=== PATIENT | female | born 1965 | race African-American/Black ===

== ENCOUNTER 2023-07-07 12:02 | Inpatient (IN) | payer OTHER ==
[2023-07-07 13:30] VITALS: BMI 18.6
[2023-07-07] MEDS ORDERED: MAGNESIUM HYDROX 2400MG/30ML ORAL SUSPENSION 30 ML CUP PO PRN (16:18)
[2023-07-07] MEDS ORDERED: BENZONATATE 200 MG CAPSULE PO PRN (16:18)
[2023-07-07] MEDS ORDERED: LOPERAMIDE HCL 2 MG CAPSULE PO PRN (16:18)
[2023-07-07] MEDS ORDERED: DICYCLOMINE HCL 10 MG CAPSULE PO PRN (16:18)
[2023-07-07] MEDS ORDERED: NALOXONE HCL (KLOXXADO) 8 MG SPRAY NS PRN (16:18)
[2023-07-07] MEDS ORDERED: NALOXONE HCL 0.4 MG/ML VIAL IM PRN (16:18)
[2023-07-07] MEDS ORDERED: IBUPROFEN 400 MG TABLET (FP) PO PRN (16:18)
[2023-07-07] MEDS ORDERED: METHOCARBAMOL 500 MG TABLET PO PRN (16:18)
[2023-07-07] MEDS ORDERED: BENZOCAINE/MENTHOL (CHLORASEPTIC ) LOZENGE MM PRN (16:18)
[2023-07-07] MEDS ORDERED: guaiFENesin 600 MG TABLET.ER (FP) PO PRN (16:18)
[2023-07-07] MEDS ORDERED: MAG HYDROX/AL HYDROX/SIMETH 30 ML UNIT-DOSE CUP PO PRN (16:18)
[2023-07-07] MEDS ORDERED: POLYETHYLENE GLYCOL (HEALTHYLAX) 3350 17 GM PACKET PO PRN (16:18)
[2023-07-07] MEDS ORDERED: ONDANSETRON *ODT* 4 MG TABLET SL PRN (16:18)
[2023-07-07] MEDS ORDERED: ACETAMINOPHEN 325 MG TABLET (FP) PO PRN (16:18)
[2023-07-07] MEDS ORDERED: BISMUTH SUBSALICYLATE 524 MG/30 ML PO PRN (16:18)
[2023-07-07] MEDS ORDERED: diazePAM 5 MG TABLET ONE (16:38)
[2023-07-07] MEDS: diazePAM 5 MG TABLET PO SCH ×2 (16:40→22:15)
[2023-07-07] MEDS: PRENATAL VITAMINS W/ FOLIC ACID TABLET (FP) PO SCH (17:56)
[2023-07-07] MEDS: NICOTINE 14 MG/24 HOURS TOPICAL PATCH TD SCH (17:57)
[2023-07-07] MEDS: IBUPROFEN 600 MG TABLET (FP) PO PRN (17:58)
[2023-07-07] MEDS: hydrOXYzine PAMOATE 25 MG CAPSULE (FP) PO PRN (17:58)
[2023-07-07] MEDS: THIAMINE HCL 100 MG TABLET (FP) PO SCH (22:15)
[2023-07-07] MEDS: MELATONIN 5 MG TABLETS PO SCH (22:15)
[2023-07-08] MEDS: diazePAM 5 MG TABLET PO SCH ×4 (05:53→22:18)
[2023-07-08] MEDS ORDERED: methaDONE HCL 10 MG TABLET PO ONE (07:41)
[2023-07-08] MEDS ORDERED: methaDONE 40 MG, methaDONE 20 MG PO ONE (08:15)
[2023-07-08] MEDS: PRENATAL VITAMINS W/ FOLIC ACID TABLET (FP) PO SCH (10:24)
[2023-07-08] MEDS: NICOTINE 14 MG/24 HOURS TOPICAL PATCH TD SCH (10:26)
[2023-07-08] MEDS: DIVALPROEX NA *ER* EXTEND REL 500 MG TABLET.SA (FP) PO SCH (10:27)
[2023-07-08] MEDS: hydrOXYzine PAMOATE 25 MG CAPSULE (FP) PO PRN (10:30)
[2023-07-08 11:16] LABS: HEMATOCRIT 36.8 % (32.4-45.2); HEMOGLOBIN 11.8 GM/dL (10.7-15.3); MCH 30.1 pg (25.7-33.7); MCHC 32.2 g/dl (32.0-36.0); MEAN CELL VOLUME 93.7 fl (80-96); MEAN PLT VOLUME 8.1 fl (7.5-11.1); PLATELET COUNT 456 10^3/uL (134-434); RBC 3.93 M/mm3 (3.60-5.2); RDW 14.5 % (11.6-15.6); WHITE BLOOD COUNT 7.9 K/mm3 (4.0-10.0)
[2023-07-08] MEDS ORDERED: PNEUMOC 20-VAL CONJ-DIP CRM/PF 0.5 ML SYRINGE IM ONE (12:00)
[2023-07-08 13:33] LABS: POTASSIUM 4.4 mmol/L (3.5-5.1)
[2023-07-08 13:38] LABS: ALBUMIN 2.5 g/dl (3.4-5.0); CALCIUM 9.3 mg/dL (8.5-10.1)
[2023-07-08 13:39] LABS: BLOOD UREA NITROGEN 15.8 mg/dL (7-18)
[2023-07-08 13:41] LABS: CREATININE 0.7 mg/dL (0.55-1.3)
[2023-07-08 13:43] LABS: BILIRUBIN,TOTAL 0.2 mg/dL (0.2-1); TOT PROT 6.7 g/dl (6.4-8.2)
[2023-07-08] MEDS: LACTULOSE 20 GM/30 ML UDC (FOR ORAL USE ONLY) PO SCH ×3 (13:47→22:19)
[2023-07-08 14:31] LABS: HIV INTERPRETATION NEGATIVE (NEGATIVE)
[2023-07-08] MEDS ORDERED: SUVOREXANT 10 MG TABLET PO PRN (22:00)
[2023-07-08] MEDS: MELATONIN 5 MG TABLETS PO SCH (22:17)
[2023-07-08] MEDS: THIAMINE HCL 100 MG TABLET (FP) PO SCH (22:18)
[2023-07-08] MEDS: SUVOREXANT 10 MG TABLET PO PRN (22:19)
[2023-07-09] MEDS: diazePAM 5 MG TABLET PO SCH ×3 (05:35→22:11)
[2023-07-09] MEDS: methaDONE 40 MG, methaDONE 20 MG PO SCH (05:35)
[2023-07-09] MEDS ORDERED: methaDONE HCL 10 MG TABLET PO SCH (06:00)
[2023-07-09] MEDS: PRENATAL VITAMINS W/ FOLIC ACID TABLET (FP) PO SCH (10:21)
[2023-07-09] MEDS: LACTULOSE 20 GM/30 ML UDC (FOR ORAL USE ONLY) PO SCH ×4 (10:21→22:12)
[2023-07-09] MEDS: DIVALPROEX NA *ER* EXTEND REL 500 MG TABLET.SA (FP) PO SCH (10:23)
[2023-07-09] MEDS: NICOTINE 14 MG/24 HOURS TOPICAL PATCH TD SCH (10:24)
[2023-07-09] MEDS: diazePAM 5 MG TABLET PO PRN ×2 (11:00→18:27)
[2023-07-09 13:44] LABS: INR 0.98 (0.83-1.09); PROTHROMBIN TIME (PATIENT) 11.4 SEC (9.7-13.0)
[2023-07-09] MEDS: THIAMINE HCL 100 MG TABLET (FP) PO SCH (22:11)
[2023-07-09] MEDS: SUVOREXANT 10 MG TABLET PO PRN (22:12)
[2023-07-09] MEDS: MELATONIN 5 MG TABLETS PO SCH (22:13)
[2023-07-10] MEDS: diazePAM 5 MG TABLET PO SCH ×2 (05:54→17:40)
[2023-07-10] MEDS: methaDONE 40 MG, methaDONE 20 MG PO SCH (05:56)
[2023-07-10] MEDS: DIVALPROEX NA *ER* EXTEND REL 500 MG TABLET.SA (FP) PO SCH (09:59)
[2023-07-10] MEDS: NICOTINE 14 MG/24 HOURS TOPICAL PATCH TD SCH (09:59)
[2023-07-10] MEDS: PRENATAL VITAMINS W/ FOLIC ACID TABLET (FP) PO SCH (09:59)
[2023-07-10] MEDS: LACTULOSE 20 GM/30 ML UDC (FOR ORAL USE ONLY) PO SCH ×4 (09:59→22:45)
[2023-07-10] MEDS: IBUPROFEN 600 MG TABLET (FP) PO PRN (17:41)
[2023-07-10] MEDS: hydrOXYzine PAMOATE 25 MG CAPSULE (FP) PO PRN (17:44)
[2023-07-10] MEDS: MELATONIN 5 MG TABLETS PO SCH (22:45)
[2023-07-10] MEDS: THIAMINE HCL 100 MG TABLET (FP) PO SCH (22:45)
[2023-07-11] MEDS: methaDONE 40 MG, methaDONE 20 MG PO SCH (05:36)
[2023-07-11] MEDS ORDERED: diazePAM 5 MG TABLET PO ONE (06:00)
[2023-07-11] MEDS: DIVALPROEX NA *ER* EXTEND REL 500 MG TABLET.SA (FP) PO SCH (09:10)
[2023-07-11] MEDS: NICOTINE 14 MG/24 HOURS TOPICAL PATCH TD SCH (09:10)
[2023-07-11] MEDS: PRENATAL VITAMINS W/ FOLIC ACID TABLET (FP) PO SCH (09:10)
[2023-07-11] MEDS: LACTULOSE 20 GM/30 ML UDC (FOR ORAL USE ONLY) PO SCH (09:10)
[2023-07-11] MEDS: hydrOXYzine PAMOATE 25 MG CAPSULE (FP) PO PRN (09:12)
[2023-07-11 09:28] VITALS: BP 92/61; PULSE 70; RESP 16; TEMP 98.7
== END 2023-07-11 09:28 | disposition home or self-care (01) | DRG 773 ==
LOC: YASAS 12:02 → Y6N 17:31
PROVIDERS: ADMIT Allergy & Immunology; ATTEND Allergy & Immunology
PROC: HZ2ZZZZ Detoxification Services for Substance Abuse Treatment (ICD-10-PCS; principal; 2023-07-07)
DX: F10.230 Alcohol dependence with withdrawal, uncomplicated (principal); F11.20 Opioid dependence, uncomplicated; F14.20 Cocaine dependence, uncomplicated; F17.210 Nicotine dependence, cigarettes, uncomplicated; F19.282 Other psychoactive substance dependence with psychoactive substance-induced sleep disorder; F19.280 Other psychoactive substance dependence with psychoactive substance-induced anxiety disorder; F19.24 Other psychoactive substance dependence with psychoactive substance-induced mood disorder; F41.9 Anxiety disorder, unspecified; I15.1 Hypertension secondary to other renal disorders; N28.89 Other specified disorders of kidney and ureter; M17.11 Unilateral primary osteoarthritis, right knee; R79.89 Other specified abnormal findings of blood chemistry
CPT/HCPCS: 36415; 80053; 82140; 85027; 85610; 86593; 86780; 87389; 87635; 87811; 90677